=== PATIENT | female | born 1985 | race Caucasian/White ===

== ENCOUNTER → 2021-07-10 | Day surgery (SDC) | payer MEDICAID ==
[~2021-07-10] VITALS: Ht 161.3 cm; Wt 64.4 kg
[~2021-07-10] MED LIST: BUPIVACAINE HCL/PF 0.25% (2.5MG/ML) 10ML ONE; DEXAMETHASONE 4MG/ML 1ML VIAL ONE; DEXT 5%/0.45% NACL KCL 20MEQ/L 1,000 ML IV SCH; FENTANYL CITRATE/PF 50MCG/ML 2ML VIAL ONE; GLYCOPYRROLATE 0.2 MG/ML 2ML VIAL ONE; IBUP-2029 MT; KETOROLAC 60MG/2ML VIAL IM NR; LACTATED RINGERS 1,000 ML IV SCH; LIDOCAINE HCL 1% 10 MG/ML 10ML VIAL ONE; MIDAZOLAM HCL 2 MG/2 ML VIAL ONE; NEOSTIGMINE METHYLSULFATE 1MG/ML 10 ML VIAL ONE; ONDANSETRON HCL 4MG/2ML INJ IV PRN; ONDANSETRON HCL 4MG/2ML INJ ONE; PHENYLEPHRINE HCL 10 MG/ML 1ML (IV VIAL) IV ONE; PROPOFOL 200MG/20ML VIAL IV ONE; SKIN ADHESIVE 0.7 GM EA TOP ONE
[2021-07-10 09:42] LABS: HCG SCREEN NEGATIVE
== END | disposition home or self-care (01) ==
LOC: OR 08:09
PROVIDERS: ATTEND Specialist
DX: Z30.2 Encounter for sterilization (principal); F41.9 Anxiety disorder, unspecified; Z79.899 Other long term (current) drug therapy; Z98.890 Other specified postprocedural states; Z82.49 Family history of ischemic heart disease and other diseases of the circulatory system; Z83.3 Family history of diabetes mellitus
CPT/HCPCS: 58301; 58661; 84703; 88108; 88300; 88302; 88304; J1100; J2250; J2370; J2405; J2704; J2710; J3010; J3490